=== PATIENT | male | born 1975 | race Caucasian/White ===

== ENCOUNTER 2020-11-09 13:41 | Emergency (ER) | payer SELFPAY ==
[~2020-11-09] VITALS: Ht 190.5 cm; Wt 93.2 kg
[2020-11-09 14:18] VITALS: BP 137/97
== END 2020-11-09 14:18 | disposition home or self-care (01) | DRG 605 ==
LOC: ED 13:41
DX: S70.12XA Contusion of left thigh, initial encounter (principal); W22.8XXA Striking against or struck by other objects, initial encounter